=== PATIENT | male | born 1995 | race Caucasian/White ===

== ENCOUNTER 2018-03-04 11:15 | Day surgery (SDC) | payer MEDICAID ==
[2018-03-01 15:14] LABS: BASOPHILS % (AUTO) 0.5 % (0-1); EOSINOPHILS # (AUTO) 0.2 X10'3 (0-0.9); EOSINOPHILS % (AUTO) 2.5 % (0-6); LYMPHOCYTES # (AUTO) 2.3 X10'3 (1.1-4.8); LYMPHOCYTES % (AUTO) 32.1 % (21-51); MEAN CORPUSCULAR HEMOGLOBIN 33.2 PG (27.0-31.0); MEAN CORPUSCULAR HGB CONC 35.1 % (33.0-36.5); MEAN CORPUSCULAR VOLUME 94.5 FL (78-98); MEAN PLATELET VOLUME 7.7 FL (7.4-10.4); MONOCYTES # (AUTO) 0.7 X10'3 (0-0.9); MONOCYTES % (AUTO) 9.2 % (2-12); NEUTROPHILS % (AUTO) 55.7 % (42-75); PRE OP HEMATOCRIT 40.2 % (42.0-52.0); PRE OP HEMOGLOBIN 14.1 g/dL (14.0-17.9); PRE OP PLATELET COUNT 241 X10'3 (140-440); RED BLOOD COUNT 4.25 X10'6 (4.70-6.10); RED CELL DISTRIBUTION WIDTH 12.7 % (11.5-14.5)
[2018-03-01 15:36] LABS: ALBUMIN 3.9 G/DL (3.4-5.0); ALBUMIN/GLOBULIN RATIO 1.2 (1.1-1.5); ALKALINE PHOSPHATASE 105 IU/L (46-116); BLOOD UREA NITROGEN 16 MG/DL (7-18); BUN/CREATININE RATIO 14.7 (5.4-32.0); CALCIUM 8.6 MG/DL (8.5-10.1); CHLORIDE 104 MMOL/L (99-107); CREATININE 1.09 MG/DL (0.60-1.10); PRE OP ALT 32 U/L (30-65); PRE OP ANION GAP 9 (8-16); PRE OP AST 23 U/L (10-37); PRE OP BILIRUB, TOTAL 0.4 MG/DL (0.0-1.0); PRE OP GLUCOSE 106 MG/DL (70-104); PRE OP POTASSIUM 3.8 MMOL/L (3.4-5.1); PRE OP SODIUM 142 MMOL/L (135-145); TOTAL CARBON DIOXIDE 28.9 MMOL/L (24-32); TOTAL PROTEIN 7.1 G/DL (6.4-8.2); eGFR 84 ML/MIN
[2018-03-04] VITALS (11 sets, daily range): BP systolic 110–140; BP diastolic 56–84
[~2018-03-04] VITALS: Ht 170.2 cm; Wt 66.7 kg
[~2018-03-04 11:15] MED LIST: ACET-812 PO; AMOX500C2 PO; CEPH-572 PO; IBUP-1985 PO; famotidine 20mg tablet PO ONE; ringers solution, lacted 1,000 ML IV SCH
[2018-03-04] MEDS ORDERED: ceFAZolin 1GM/D5W- ADD-VANTAGE 50 ML IV ONE (14:05)
[2018-03-04] MEDS ORDERED: BUPIVAcaine/PF 2.5mg/ml (0.25%) 10ml vial ONE (14:35)
[2018-03-04] MEDS ORDERED: sevoflurane 250ml liquid IH ONE (14:44)
[2018-03-04] MEDS ORDERED: fentaNYL/PF 50MCG/1 ML 2ML syringe ONE (14:48)
[2018-03-04] MEDS ORDERED: midazolam 2 mg/2 ml injection ONE (14:48)
[2018-03-04] MEDS ORDERED: ringers solution, lacted 1,000 ML IV SCH (15:28)
[2018-03-04] MEDS ORDERED: proCHLORperazine 10 MG/2 ml inj IV PRN (15:30)
[2018-03-04] MEDS ORDERED: ondansetron/PF 4mg/2ml inj IV PRN (15:30)
[2018-03-04] MEDS ORDERED: morphine 4 MG/ML inj SYRINge IV PRN ×2 (15:30)
[2018-03-04] MEDS ORDERED: meperidine/PF 25mg/ml syringe IV PRN ×3 (15:30)
[2018-03-04] MEDS ORDERED: propofol inj 20 ML IV ONE (15:46)
--- NOTE | 2018-03-04 16:05 | NUR ---
Received from OR via BED, accompanied by Anesthesiologist DR WEEMS and report given by Anesthesiolgist. PATIENT A&OX4, DENIES PAIN, V/S WNL, NEUROVASCULAR CHECKS INTACT, 20G PIV LUE, SCD ON, DRESSING TO RIGHT WRIST CDI ELEVATED WITH ICEBAG APPLIED
--- NOTE | 2018-03-04 17:25 | NUR ---
PATIENT A&OX4, DENIES PAIN, V/S WNL, NEUROVASCULAR CHECKS INTACT, 20G PIV LUE D/C, SCD OFF, DRESSING TO RIGHT WRIST CDI ELEVATED WITH ICEBAG APPLIED. I HAVE REVIEWED D/C INSTRUCTIONS WITH PATIENT AND FAMILY AND THEY HAVE VERBALIZED UNDERSTANDING. PATIENT D/C HOME WITH ALL BELONGINGS AND FAMILY GAVE TRANSPORT HOME.
[2018-03-05] MEDS ORDERED: ONDA4TAB6 PO (02:38)
[2018-03-05] MEDS ORDERED: HYDR-4353 PO (02:38)
== END 2018-03-04 17:25 | disposition home or self-care (01) ==
LOC: PAS 11:15
PROVIDERS: ATTEND Orthopaedic Surgery Hand Surgery
DX: S56.121A Laceration of flexor muscle, fascia and tendon of right index finger at forearm level, initial encounter (principal); S64.490A Injury of digital nerve of right index finger, initial encounter; K21.9 Gastro-esophageal reflux disease without esophagitis; F17.210 Nicotine dependence, cigarettes, uncomplicated; Z82.49 Family history of ischemic heart disease and other diseases of the circulatory system; Z79.891 Long term (current) use of opiate analgesic; Z79.2 Long term (current) use of antibiotics; Z79.1 Long term (current) use of non-steroidal anti-inflammatories (NSAID); Z79.899 Other long term (current) drug therapy; W26.8XXA Contact with other sharp object(s), not elsewhere classified, initial encounter; Y93.89 Activity, other specified; Y92.89 Other specified places as the place of occurrence of the external cause; Y99.8 Other external cause status
CPT/HCPCS: 26356; 36415; 64831; 80053; 82948; 85025; A6222; J0690; J2250; J2704; J3010; J3490; J7120; A7000

== ENCOUNTER 2018-03-05 02:13 | Emergency (ER) | payer MEDICAID ==
[~2018-03-05] VITALS: Ht 170.2 cm; Wt 68.2 kg
[~2018-03-05 02:13] MED LIST changes: -famotidine 20mg tablet PO ONE; -ringers solution, lacted 1,000 ML IV SCH
[2018-03-05 02:27] VITALS: BP 153/98
[2018-03-05] MEDS ORDERED: ONDA4TAB6 PO (02:38)
[2018-03-05] MEDS ORDERED: HYDR-4353 PO (02:38)
[2018-03-05] MEDS ORDERED: HYDROcodone/acetaminophen 10/325mg tab PO ONE (02:40)
[2018-03-05] MEDS ORDERED: ondansetron 4mg rapidly disintigrating tab PO ONE (02:40)
== END 2018-03-05 02:51 | disposition home or self-care (01) ==
LOC: ER 02:14
DX: M79.644 Pain in right finger(s) (principal); G89.18 Other acute postprocedural pain; F15.90 Other stimulant use, unspecified, uncomplicated; Z60.2 Problems related to living alone; Z79.2 Long term (current) use of antibiotics; Z79.899 Other long term (current) drug therapy
CPT/HCPCS: 99283

== ENCOUNTER 2018-03-11 15:46 | Emergency (ER) | payer MEDICAID ==
[~2018-03-11] VITALS: Ht 170.2 cm; Wt 68.0 kg
[~2018-03-11 15:46] MED LIST changes: +HYDR-4353 PO; +ONDA4TAB6 PO
[2018-03-11] MEDS ORDERED: TRAM50TA2 PO (16:33)
[2018-03-11 16:37] VITALS: BP 139/87
== END 2018-03-11 16:39 | disposition home or self-care (01) ==
LOC: ER 15:46
DX: M79.641 Pain in right hand (principal); F15.90 Other stimulant use, unspecified, uncomplicated
CPT/HCPCS: 99283

== ENCOUNTER 2018-03-15 10:40 | Emergency (ER) | payer MEDICAID ==
[~2018-03-15] VITALS: Ht 170.2 cm; Wt 65.9 kg
[~2018-03-15 10:40] MED LIST changes: +TRAM50TA2 PO
[2018-03-15 11:08] VITALS: BP 124/82
== END 2018-03-15 12:52 | disposition home or self-care (01) ==
LOC: ER 10:40
DX: G89.18 Other acute postprocedural pain (principal); F15.90 Other stimulant use, unspecified, uncomplicated; Z79.899 Other long term (current) drug therapy; Z60.2 Problems related to living alone
CPT/HCPCS: 99281

== ENCOUNTER 2018-06-25 12:56 | Emergency (ER) | payer MEDICAID ==
[~2018-06-25] VITALS: Ht 170.2 cm; Wt 66.5 kg
[~2018-06-25 12:56] MED LIST changes: -HYDR-4353 PO; -TRAM50TA2 PO
[2018-06-25] MEDS ORDERED: AMOX-580 PO (14:52)
[2018-06-25 15:00] VITALS: BP 100/63
== END 2018-06-25 15:04 | disposition home or self-care (01) ==
LOC: ER 12:56
DX: J32.0 Chronic maxillary sinusitis (principal); R22.2 Localized swelling, mass and lump, trunk; R07.89 Other chest pain; K08.89 Other specified disorders of teeth and supporting structures; F15.90 Other stimulant use, unspecified, uncomplicated; Z98.890 Other specified postprocedural states; Z60.2 Problems related to living alone; Z79.899 Other long term (current) drug therapy
CPT/HCPCS: 99283

== ENCOUNTER 2019-01-10 19:42 | Emergency (ER) | payer MEDICAID, OTHER ==
[~2019-01-10] VITALS: Ht 170.2 cm; Wt 70.5 kg
[2019-01-10 19:50] VITALS: BP 150/98
[2019-01-10] MEDS ORDERED: PENI500T2 PO (20:28)
[2019-01-10] MEDS ORDERED: IBUP-1984 PO (20:28)
[2019-01-10] MEDS ORDERED: ibuprofen tablet 400 MG TABLET PO ONE (20:30)
== END 2019-01-10 20:45 | disposition home or self-care (01) ==
LOC: ER 19:42
DX: K02.9 Dental caries, unspecified (principal); F15.90 Other stimulant use, unspecified, uncomplicated; F17.210 Nicotine dependence, cigarettes, uncomplicated; Z98.890 Other specified postprocedural states
CPT/HCPCS: 99283

== ENCOUNTER 2019-07-04 15:09 | Emergency (ER) | payer MEDICAID | END 2019-07-04 16:38 | disposition left against medical advice (07) | LOC: ER 15:10 | DX: H57.10 Ocular pain, unspecified eye (principal); Z53.21 Procedure and treatment not carried out due to patient leaving prior to being seen by health care provider ==

== ENCOUNTER 2019-08-03 06:04 | Emergency (ER) | payer MEDICAID ==
[~2019-08-03] VITALS: Ht 170.2 cm; Wt 65.9 kg
[2019-08-03 06:22] VITALS: BP 148/99
[2019-08-03] MEDS ORDERED: ketorolac trometh. 30mg/ml inj. IM ONE (07:00)
[2019-08-03] MEDS ORDERED: penicillin V potassium 500mg tablet PO ONE (07:00)
[2019-08-03] MEDS ORDERED: PENI500T2 PO (07:03)
== END 2019-08-03 07:36 | disposition home or self-care (01) ==
LOC: ER 06:04
DX: K04.7 Periapical abscess without sinus (principal); F17.200 Nicotine dependence, unspecified, uncomplicated; F15.90 Other stimulant use, unspecified, uncomplicated; Z98.890 Other specified postprocedural states; Z60.2 Problems related to living alone; Z79.2 Long term (current) use of antibiotics; Z79.899 Other long term (current) drug therapy
CPT/HCPCS: 96372; 99283; J1885

== ENCOUNTER 2019-09-18 21:46 | Emergency (ER) | payer MEDICAID ==
[~2019-09-18] VITALS: Ht 170.2 cm; Wt 64.2 kg
[2019-09-18 21:49] VITALS: BP 143/87
--- NOTE | 2019-09-18 22:53 | NUR ---
PT MOANING INCESSANTLY AND SAYING "FUCKING-A"
[2019-09-18] MEDS ORDERED: AMOX-422 PO (23:12)
[2019-09-18] MEDS ORDERED: ketorolac tromethamine 15mg/ml inj. IM ONE (23:15)
== END 2019-09-18 23:23 | disposition home or self-care (01) ==
LOC: ER 21:47
DX: K04.7 Periapical abscess without sinus (principal); K08.89 Other specified disorders of teeth and supporting structures; F15.90 Other stimulant use, unspecified, uncomplicated; Z98.890 Other specified postprocedural states; Z60.2 Problems related to living alone; Z79.899 Other long term (current) drug therapy
CPT/HCPCS: 96372; 99283; J1885

== ENCOUNTER 2019-09-19 06:19 | Emergency (ER) | payer MEDICAID ==
[~2019-09-19] VITALS: Ht 170.2 cm; Wt 64.1 kg
[~2019-09-19 06:19] MED LIST changes: +AMOX-422 PO
[2019-09-19 06:24] VITALS: BP 132/95
[2019-09-19] MEDS ORDERED: ketorolac tromethamine 15mg/ml inj. IM ONE (06:45)
[2019-09-19] MEDS ORDERED: acetaminophen 325mg tablet PO ONE (06:45)
== END 2019-09-19 07:22 | disposition home or self-care (01) ==
LOC: ER 06:19
DX: K04.7 Periapical abscess without sinus (principal); F12.90 Cannabis use, unspecified, uncomplicated; Z98.890 Other specified postprocedural states; Z60.2 Problems related to living alone; Z79.2 Long term (current) use of antibiotics; Z79.899 Other long term (current) drug therapy
CPT/HCPCS: 96372; 99283; J1885

== ENCOUNTER 2019-11-02 19:59 | Emergency (ER) | payer MEDICAID ==
[~2019-11-02] VITALS: Ht 170.2 cm; Wt 63.6 kg
[~2019-11-02 19:59] MED LIST changes: -AMOX-422 PO
[2019-11-02] MEDS ORDERED: PENI500T2 PO (21:42)
[2019-11-02] MEDS ORDERED: ibuprofen 200mg tablet PO ONE (21:50)
[2019-11-02 21:55] VITALS: BP 130/81
== END 2019-11-02 21:56 | disposition home or self-care (01) ==
LOC: ER 19:59
DX: K04.7 Periapical abscess without sinus (principal); F15.10 Other stimulant abuse, uncomplicated; Z98.890 Other specified postprocedural states; Z60.2 Problems related to living alone; Z79.2 Long term (current) use of antibiotics; Z79.899 Other long term (current) drug therapy
CPT/HCPCS: 99283

== ENCOUNTER 2020-08-05 21:51 | Emergency (ER) | payer MEDICAID ==
[~2020-08-05] VITALS: Ht 170.2 cm; Wt 68.2 kg
[2020-08-05] MEDS ORDERED: PENI250T2 PO (23:12)
[2020-08-05] MEDS ORDERED: NAPR-56 PO (23:12)
[2020-08-05] MEDS ORDERED: HYDROcodone/acetaminophen 5mg/325mg tablet PO ONE (23:15)
[2020-08-05 23:50] VITALS: BP 130/94
== END 2020-08-05 23:52 | disposition home or self-care (01) ==
LOC: ER 21:52
DX: K08.89 Other specified disorders of teeth and supporting structures (principal); K00.7 Teething syndrome; F15.90 Other stimulant use, unspecified, uncomplicated; Z60.2 Problems related to living alone; Z98.890 Other specified postprocedural states; Z79.2 Long term (current) use of antibiotics; Z79.899 Other long term (current) drug therapy
CPT/HCPCS: 99283

== ENCOUNTER 2020-10-02 22:00 | Emergency (ER) | payer MEDICAID ==
[~2020-10-02] VITALS: Ht 170.2 cm; Wt 62.6 kg
[2020-10-02 22:43] VITALS: BP 135/98
--- NOTE | 2020-10-03 00:31 | NUR ---
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
[2020-10-03] MEDS ORDERED: HYDR-3965 PO (00:36)
== END 2020-10-03 00:45 | disposition home or self-care (01) ==
LOC: ER 22:00
DX: S62.91XA Unspecified fracture of right hand, initial encounter for closed fracture (principal); F17.200 Nicotine dependence, unspecified, uncomplicated; F15.90 Other stimulant use, unspecified, uncomplicated; Z60.2 Problems related to living alone; Z98.890 Other specified postprocedural states; Z79.2 Long term (current) use of antibiotics; Z79.899 Other long term (current) drug therapy; X58.XXXA Exposure to other specified factors, initial encounter; Y93.89 Activity, other specified; Y92.89 Other specified places as the place of occurrence of the external cause; Y99.8 Other external cause status
CPT/HCPCS: 29125; 73130; 99283

== ENCOUNTER 2021-10-14 05:21 | Emergency (ER) | payer MEDICAID ==
[~2021-10-14] VITALS: Ht 170.2 cm; Wt 65.9 kg
[2021-10-14 05:25] VITALS: BP 166/61
--- NOTE | 2021-10-14 06:41 | NUR ---
left upper tooth cracked and chipped off.
[2021-10-14] MEDS ORDERED: AMOX-580 PO (06:49)
[2021-10-14] MEDS ORDERED: amox tr/potassium clavulanate 875/125mg TAB PO ONE (06:50)
[2021-10-14] MEDS ORDERED: ibuprofen tablet 400 MG TABLET PO ONE (06:50)
== END 2021-10-14 07:24 | disposition home or self-care (01) ==
LOC: ER 05:21
DX: K04.7 Periapical abscess without sinus (principal); F15.20 Other stimulant dependence, uncomplicated
CPT/HCPCS: 99283

== ENCOUNTER 2021-12-21 03:16 | Emergency (ER) | payer MEDICAID ==
[~2021-12-21] VITALS: Ht 170.2 cm; Wt 63.6 kg
[2021-12-21 03:18] VITALS: BP 143/100
[2021-12-21] MEDS ORDERED: ondansetron 4mg rapidly disintigrating tab PO ONE (05:15)
[2021-12-21] MEDS ORDERED: sulfamethoxazole/trimethoprim DS (800/160mg) tablet PO ONE (05:15)
[2021-12-21] MEDS ORDERED: SULF1TAB45 PO (05:17)
[2021-12-21] MEDS ORDERED: bacitracin 15gm ointment TP ONE (05:20)
== END 2021-12-21 05:43 | disposition home or self-care (01) ==
LOC: ER 03:16
DX: L03.011 Cellulitis of right finger (principal); M79.644 Pain in right finger(s); F15.90 Other stimulant use, unspecified, uncomplicated; Z98.890 Other specified postprocedural states; Z60.2 Problems related to living alone; Z79.2 Long term (current) use of antibiotics; Z79.899 Other long term (current) drug therapy
CPT/HCPCS: 10060; 99284

== ENCOUNTER 2022-02-27 23:42 | Emergency (ER) | payer MEDICAID ==
[~2022-02-27] VITALS: Ht 170.2 cm; Wt 68.2 kg
[2022-02-27 23:53] VITALS: BP 135/86
== END 2022-02-28 01:43 | disposition home or self-care (01) ==
LOC: ER 23:45
DX: K08.89 Other specified disorders of teeth and supporting structures (principal); M25.531 Pain in right wrist; F15.90 Other stimulant use, unspecified, uncomplicated; Z60.2 Problems related to living alone; Z98.890 Other specified postprocedural states; Z79.899 Other long term (current) drug therapy
CPT/HCPCS: 99281

== ENCOUNTER 2023-02-25 13:56 | Emergency (ER) | payer MEDICAID ==
[~2023-02-25] VITALS: Ht 170.2 cm; Wt 66.9 kg
[2023-02-25 14:34] VITALS: TEMP 97.7
[2023-02-25 14:58] LABS: BASOPHILS % (AUTO) 0.4 % (0-1); EOSINOPHILS # (AUTO) 0.4 X10'3 (0-0.9); EOSINOPHILS % (AUTO) 4.2 % (0-6); HEMOGLOBIN 15.1 g/dl (14.0-17.9); LYMPHOCYTES # (AUTO) 2.6 X10'3 (1.1-4.8); LYMPHOCYTES % (AUTO) 27.2 % (21-51); MEAN CORPUSCULAR HEMOGLOBIN 32.3 PG (27.0-31.0); MEAN CORPUSCULAR HGB CONC 34.4 g/dL (33.0-36.5); MEAN PLATELET VOLUME 7.9 FL (7.4-10.4); MONOCYTES # (AUTO) 0.6 X10'3 (0-0.9); MONOCYTES % (AUTO) 6.1 % (2-12); NEUTROPHILS # (AUTO) 5.9 X10'3 (1.8-7.7); NEUTROPHILS % (AUTO) 62.1 % (42-75); PLATELET COUNT 252 X10'3 (140-440); RED BLOOD COUNT 4.68 X10'6 (4.70-6.10); RED CELL DISTRIBUTION WIDTH 12.9 % (11.5-14.5); WHITE BLOOD COUNT 9.6 X10'3 (4.5-11.0)
[2023-02-25 15:07] LABS: ALANINE AMINOTRANSFERASE 31 U/L (12-78); ALKALINE PHOSPHATASE 113 IU/L (46-116); ANION GAP 6 (8-16); ASPARTATE AMINO TRANSFERASE 24 U/L (10-37); BILIRUBIN,TOTAL 0.3 MG/DL (0.1-1.0); BLOOD UREA NITROGEN 20 MG/DL (7-18); BUN/CREATININE RATIO 18.5 (10.0-20.0); CALCIUM 9.3 MG/DL (8.5-10.1); CHLORIDE 104 MMOL/L (99-107); CREATININE 1.08 MG/DL (0.60-1.10); ETHANOL < 10 MG/DL (<10); GLUCOSE 92 MG/DL (70-104); LIPASE 31 U/L (16-77); POTASSIUM 4.1 MMOL/L (3.5-5.1); SODIUM 140 MMOL/L (135-145); TOTAL CARBON DIOXIDE 30.1 MMOL/L (24-32); TOTAL PROTEIN 7.9 G/DL (6.4-8.2); eCRCL 95 ML/MIN; eGFR 81 ML/MIN
[2023-02-25] MEDS ORDERED: HYDR-3965 PO (17:41)
[2023-02-25] MEDS ORDERED: AMOX-580 PO (17:41)
[2023-02-25 18:02] VITALS: BP 144/103; PULSE 91; O2SAT 100
[2023-02-25] MEDS ORDERED: oxyCODONE/APAP 5-325mg tablet PO ONE (18:05)
[2023-02-25 18:10] VITALS: RESP 13
[2023-02-26] MEDS ORDERED: HYDR-3965 PO (16:20)
[2023-02-26] MEDS ORDERED: AMOX-580 PO (16:20)
== END 2023-02-25 19:00 | disposition home or self-care (01) ==
LOC: ER 13:56
DX: K02.9 Dental caries, unspecified (principal); F15.90 Other stimulant use, unspecified, uncomplicated; Z79.2 Long term (current) use of antibiotics; Z79.899 Other long term (current) drug therapy
CPT/HCPCS: 36415; 80053; 80320; 83690; 85025; 99283

== ENCOUNTER 2023-09-24 19:44 | Emergency (ER) | payer MEDICAID ==
[~2023-09-24] VITALS: Ht 170.2 cm; Wt 65.9 kg
[2023-09-24] MEDS ORDERED: PSEU120T56 PO (21:44)
[2023-09-24] MEDS ORDERED: IBUP-862 PO (21:44)
[2023-09-24] MEDS ORDERED: FLUT16SP2 BOTHNARES (21:44)
[2023-09-24] MEDS ORDERED: AMOX-117 PO (21:44)
[2023-09-24] MEDS: ketorolac tromethamine 15mg/ml inj. IM ONE (21:50)
[2023-09-24 22:16] VITALS: BP 136/81; PULSE 72; RESP 16; TEMP 98.2; O2SAT 98
== END 2023-09-24 22:11 | disposition home or self-care (01) ==
LOC: ER 19:44
DX: J32.2 Chronic ethmoidal sinusitis (principal); R51.9 Headache, unspecified; F15.90 Other stimulant use, unspecified, uncomplicated; Z79.1 Long term (current) use of non-steroidal anti-inflammatories (NSAID); Z79.2 Long term (current) use of antibiotics; Z79.899 Other long term (current) drug therapy; Z98.890 Other specified postprocedural states; Z60.2 Problems related to living alone
CPT/HCPCS: 70450; 96372; 99285; J1885

== ENCOUNTER 2024-01-24 16:01 | Emergency (ER) | payer MEDICAID ==
[~2024-01-24] VITALS: Ht 167.6 cm; Wt 75.0 kg
[~2024-01-24 16:01] MED LIST changes: +AMOX-117 PO; +FLUT16SP2 BOTHNARES; +IBUP-862 PO; +PSEU120T56 PO
[2024-01-24 16:03] VITALS: BP 132/92; PULSE 110; RESP 18; TEMP 97; O2SAT 98
[2024-01-24] MEDS ORDERED: CLIN-97 PO (17:23)
[2024-01-24] MEDS: ibuprofen tablet 400 MG TABLET PO ONE (17:33)
== END 2024-01-24 17:35 | disposition home or self-care (01) ==
LOC: ER 16:02
DX: K02.9 Dental caries, unspecified (principal); F15.90 Other stimulant use, unspecified, uncomplicated; Z79.1 Long term (current) use of non-steroidal anti-inflammatories (NSAID); Z79.52 Long term (current) use of systemic steroids; Z79.899 Other long term (current) drug therapy; Z98.890 Other specified postprocedural states; Z60.2 Problems related to living alone
CPT/HCPCS: 99283

== ENCOUNTER 2024-04-19 23:22 | Emergency (ER) | payer MEDICAID ==
[~2024-04-19] VITALS: Ht 170.2 cm; Wt 71.2 kg
[~2024-04-19 23:22] MED LIST changes: +CLIN-97 PO
[2024-04-19 23:48] VITALS: BP 164/95; PULSE 122; RESP 18; O2SAT 98
[2024-04-20] MEDS ORDERED: SULF1TAB49 PO (00:27)
[2024-04-20] MEDS ORDERED: CEPH-585 PO (00:27)
[2024-04-20] MEDS: LIDOcaine 1% W/epiNEPHrine 1:100,000 20ml vial SQ ONE (00:32)
[2024-04-20 01:34] VITALS: TEMP 97.7
== END 2024-04-20 01:39 | disposition home or self-care (01) ==
LOC: ER 23:22
DX: L02.212 Cutaneous abscess of back [any part, except buttock and flank] (principal); L03.312 Cellulitis of back [any part except buttock and flank]; F15.90 Other stimulant use, unspecified, uncomplicated; Z98.890 Other specified postprocedural states; Z60.2 Problems related to living alone; Z79.1 Long term (current) use of non-steroidal anti-inflammatories (NSAID); Z79.899 Other long term (current) drug therapy
CPT/HCPCS: 10060; 99283; A6266

== ENCOUNTER 2024-09-25 13:03 | Emergency (ER) | payer MEDICAID ==
[~2024-09-25] VITALS: Ht 170.2 cm; Wt 68.0 kg
[~2024-09-25 13:03] MED LIST changes: +CLIN-224 PO; -CLIN-97 PO; -IBUP-1985 PO; +IBUP600T52 PO
[2024-09-25 13:55] LABS: LEUKOCYTE ESTERASE ,URINE NEGATIVE (Neg); NITRITES, URINE NEGATIVE (Neg); OCCULT BLOOD,URINE NEGATIVE (Neg)
[2024-09-25 13:58] LABS: MEAN PLATELET VOLUME 7.8 FL (7.4-10.4); RED CELL DISTRIBUTION WIDTH 12.9 % (11.5-14.5)
[2024-09-25 13:59] LABS: UA COLLECTION TYPE CLN CATCH MIDSTREAM
[2024-09-25 14:14] LABS: SQUAMOUS EPITHELIAL CELL,UR MODERATE /LPF (FEW)
[2024-09-25 14:14] LABS: CREATININE 0.95 MG/DL (0.60-1.10); TOTAL CARBON DIOXIDE 30.4 MMOL/L (24-32); eCRCL 106 ML/MIN; eGFR > 90 ML/MIN
[2024-09-25 14:25] LABS: MUCUS STRANDS MODERATE /LPF (Neg)
[2024-09-25] MEDS: LIDOcaine 1% W/epiNEPHrine 1:100,000 20ml vial SQ ONE (15:08)
--- NOTE | 2024-09-25 15:10 | Physician Documentation ---
History of Present Illness ~ Chief Complaint: Abdominal Pain Stated Complaint: ABD PAIN AND ABSCESS Time Seen by MD: 13:30 Primary Medical Doctor: N/A Mode of Arrival: Dropped Off [facility] 29-year-old male presents to the ED with a complaint of left elbow pain and nausea. States that the pain has worsened over the last 2-3 days. Denies being a IV drug user but says that he does smoke crank. Denies any fevers. Says that he has nausea intermittently for the last month Day of Onset: Sep 25, 2024 Tetanus within 5 years: No Medication Reconciliation Allergies: Coded Allergies: No Known Allergies (Unverified , 09/25/24) Scheduled Amox Tr/Potassium Clavulanate (Augmentin 875-125 Tablet), 1 TAB PO Q12H Amoxicillin Trihydrate* (Amoxicillin*), 1 CAP PO TID, (Reported) Cephalexin (Keflex), 1 CAP PO Q6H, (Reported) Cephalexin*Monohydrate* (Keflex*), 1 CAP PO QID Clindamycin HCL* (Clindamycin HCL*), 1 CAP PO Q6H Fluticasone Propionate (Flonase), 2 SPRAYS BOTHNARES DAILY Ibuprofen (Ibu), 1 TAB PO Q6H Ibuprofen (Ibu), 1 TAB PO Q6H Ondansetron Hcl (Zofran), 1 TAB PO Q6H Pseudoephedrine HCl (Sudafed 12 Hour), 1 TAB PO Q12H Sulfamethoxazole/Trimethoprim (Bactrim 400-80 Mg Tablet), 1 TAB PO Q12H Scheduled PRN Acetaminophen (Tylenol Extra Strength), 2 TABLET PO Q8H PRN for pain, (Reported) Ibuprofen (Ibuprofen), 1 TAB PO Q8H PRN for pain, (Reported) Past Medical History Past Medical History: *PSYCH* Past Surgical History: orthopedic surgeries Alcohol Use: None Drug Use: methamphetamine Lives with: Alone Lives In: Home Occupation: employed Review of Systems All Other Systems at this time: Reviewed and Negative ROS As stated above in the HPI, otherwise all systems are reviewed and negative. Physical Exam Vital Signs: Temperature: 98.5, Source: Oral, Heart Rate: 78, Respiratory Rate: 14, BP: 130/94, Pulse Oximetry: 97, Weight: 67.950 Oxygen Flow Rate: 0 Physical Exam General: Alert, no apparent distress. HEENT: PERRL, EOMI, no injection, moist mucous membranes. Cardiovascular: Regular rate and rhythm, no murmurs. Gastrointestinal: Soft, nontender, nondistended. Bowels sounds present. Skin: Posterior left elbow raised area proximally 1-2 cm no drainage. Notable erythema traveling up the bicep consistent with a lymphangitis Procedures I&D Procedure : Anesthesia: Lidocaine w/ Epi Blade Size: 11 Incision: blood drained Tolerated Procedure Well?: yes, no complications Progress Results/Orders Results/Orders Orders - ANKUR TERRY DISTRICT MANAGER Laceration/I&D Tray Set Up (09/25/24 ) Completed Orders - ANKUR TERRY DISTRICT MANAGER Lidocaine 1% W/Epi 1:100,000 (Xylocaine (09/25/24 14:45) Sulfamethox/Trimetho. Ds Tab (Septra Ds (09/25/24 15:10) Cephalexin Capsule (Keflex Capsule) (09/25/24 15:10) Medications Received in ER Medications (Trade) Dose Ordered Sig/Samantha Route PRN Reason Start Time Stop Time Status Last Admin Dose Admin (Xylocaine 1%-EPI 1:100,000) 30 ml ONCE ONCE SQ 09/25/24 14:45 09/25/24 14:46 DC 09/25/24 15:08 30 ML Vital Signs 09/25/24 09/25/24 09/25/24 13:20 14:13 14:30 Temp 97.4 98.5 Pulse 98 78 Resp 18 9 14 B/P (MAP) 143/102 130/94 (106) Pulse Ox 98 97 O2 Flow Rate 0 Laboratory Tests Test 09/25/24 13:25 09/25/24 13:43 Urine Specimen Description Cln catch midstream Urine Color Yellow Urine Clarity Slightly cloudy Urine pH 6.0 Urine Specific Anderson 1.025 Urine Protein Trace Urine Glucose (UA) Negative Urine Ketones Negative Urine Occult Blood Negative Urine Nitrite Negative Urine Bilirubin Negative Urine Urobilinogen 0.2 Urine Leukocyte Esterase Negative Urine RBC 3-10 Urine WBC 10-20 H Urine Squamous Epithelial Cells Moderate Urine Transitional Epithelial Cells Many Urine Bacteria Few Urine Mucus Moderate Urine Culture Indicated Rejected for culture Volume Urine Centrifuged 10 ml Urine Comment White Blood Count 10.2 Red Blood Count 4.33 L Hemoglobin 13.9 L Hematocrit 39.8 L Mean Corpuscular Volume 91.8 Mean Corpuscular Hemoglobin 32.0 H Mean Corpuscular Hemoglobin Concent 34.9 Red Cell Distribution Width 12.9 Platelet Count 262 Mean Platelet Volume 7.8 Neutrophils (%) (Auto) 61.1 Lymphocytes (%) (Auto) 29.3 Monocytes (%) (Auto) 7.0 Eosinophils (%) (Auto) 2.3 Basophils (%) (Auto) 0.3 Neutrophils # (Auto) 6.2 Lymphocytes # (Auto) 3.0 Monocytes # (Auto) 0.7 Eosinophils # (Auto) 0.2 Basophils # (Auto) 0.0 CBC Comment Sodium Level 141 Potassium Level 3.6 Chloride Level 102 Carbon Dioxide Level 30.4 Anion Gap 9 Blood Urea Nitrogen 10 Creatinine 0.95 Estimated GFR/1.73 m2 > 90 BUN/Creatinine Ratio 10.5 Glucose Level 121 H Calcium Level 9.1 Total Bilirubin 0.5 Aspartate Amino Transf (AST/SGOT) 19 Alanine Aminotransferase (ALT/SGPT) 23 Alkaline Phosphatase 123 H Total Protein 7.5 Albumin 3.8 Globulin 3.7 Albumin/Globulin Ratio 1.0 L Lipase 15 L Chemistry Comments Medical Decision Making Findings This patient is nontoxic appearing in his laboratory values do not show any signs of sepsis. The patient did have developing live at jaundice on his left upper extremity. I attempted to aspirate or drain the suspected abscess with very minimal discharge. He has started him on oral antibiotics and have him follow up or return to the ED in the next 1-2 days Elbow Diff Dx:Considerations: Include: Abrasion, Arthritis, Contustion, DJD, Fracture-humerus, Fracture-radial head, Fracture-radius, Fracture-ulna, Gout, Hematoma, Laceration, Neurovascular injury, Olecranon bursitis, Open fracture, Osteomyelitis, Radial head subluxation, Rheumatoid arthritis, Septic, Sprain, Ulcer, Other Departure Disposition: 01 HOME / SELF CARE / HOMELESS Impression: Primary Impression: Cellulitis of arm, left Condition: Stable Discharge Instructions: Cellulitis, Adult, [id number] Referrals: NO PRIMARY CARE PROVIDER (PCP) Prescriptions Cephalexin*Monohydrate* (Keflex*) 500 Mg Capsule 1 CAP PO QID, #40 CAP Prov: ANKUR TERRY DISTRICT MANAGER 09/25/24 Sulfamethoxazole/Trimethoprim (Bactrim 400-80 Mg Tablet) 400 Mg-80 Mg Tablet 1 TAB PO Q12H for 7 Days, #14 TAB Prov: ANKUR TERRY DISTRICT MANAGER 09/25/24 Education Educated: Patient Educated regarding: diagnosis Signature Scribe Signature: Attestation: Scribed for Ankur Terry Reports Analyst by Ankur Terry - JAXSON . 09/25/24 15:10 ANKUR TERRY NP Sep 25, 2024 15:10
[2024-09-25] MEDS ORDERED: SULF1TAB48 PO (15:12)
[2024-09-25] MEDS ORDERED: CEPH-585 PO (15:12)
[2024-09-25 15:18] VITALS: BP 148/64; PULSE 83; RESP 8; TEMP 98.5; O2SAT 99
[2024-09-25] MEDS: sulfamethoxazole/trimethoprim DS (800/160mg) tablet PO ONE (15:29)
== END 2024-09-25 15:44 | disposition home or self-care (01) ==
LOC: ER 13:04
DX: L03.114 Cellulitis of left upper limb (principal); F15.90 Other stimulant use, unspecified, uncomplicated; Z79.899 Other long term (current) drug therapy; Z60.2 Problems related to living alone
CPT/HCPCS: 10060; 36415; 80053; 81001; 83690; 85025; 99283; A6407; J3490; A6449

== ENCOUNTER 2024-12-02 16:21 | Emergency (ER) | payer MEDICAID ==
[~2024-12-02] VITALS: Ht 170.2 cm; Wt 65.9 kg
[~2024-12-02 16:21] MED LIST changes: +CEPH-585 PO
[2024-12-02 16:41] VITALS: TEMP 96.4
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
[2024-12-02] MEDS: pantoprazole 40mg Tablet.DR PO STA (18:57)
[2024-12-02] MEDS: bacitracin 15gm ointment TP STA (18:57)
[2024-12-02 19:02] VITALS: BP 121/88; PULSE 100; RESP 16; O2SAT 98
== END 2024-12-02 19:04 | disposition home or self-care (01) ==
LOC: ER 16:22
DX: S00.212A Abrasion of left eyelid and periocular area, initial encounter (principal); K21.9 Gastro-esophageal reflux disease without esophagitis; Y04.0XXA Assault by unarmed brawl or fight, initial encounter; Y93.89 Activity, other specified; Y92.89 Other specified places as the place of occurrence of the external cause; Y99.8 Other external cause status
CPT/HCPCS: 99283